=== PATIENT | male | born 1995 | race African-American/Black ===

== ENCOUNTER 2020-09-01 19:26 | Emergency (ER) | payer BC ==
[~2020-09-01] VITALS: Ht 188 cm; Wt 136.4 kg
[2020-09-01 19:27] VITALS: BP 000/00; PULSE 0
== END 2020-09-02 10:00 | disposition expired ==
LOC: COL.ER 19:26 → EDBD 19:27 → COL.ER 09-02 10:00
DX: I46.9 Cardiac arrest, cause unspecified (principal)
CPT/HCPCS: J0171; J2310